=== PATIENT | female | born 1995 | race American Indian/Alaskan Native ===

== ENCOUNTER 2017-06-12 01:27 | Emergency (ER) | payer SELFPAY ==
[2017-06-12 02:26] VITALS: BP 128/78
[2017-06-12] MEDS ORDERED: TYLENOL PO ONE (02:28)
== END 2017-06-12 05:09 | disposition left against medical advice (07) ==
LOC: ED 01:27
DX: H57.11 Ocular pain, right eye (principal); Z53.21 Procedure and treatment not carried out due to patient leaving prior to being seen by health care provider

== ENCOUNTER 2017-09-11 18:19 | Emergency (ER) | payer SELFPAY ==
[2017-09-11 18:56] VITALS: BP 139/80
[2017-09-11 20:58] LABS: Bacteria,Urine 1+ /HPF (Negative); Bilirubin,Urine NEG (Negative); Blood,Urine LG (Negative); Color,Urine Yellow (Yellow); Mucus,Urine 3+ /HPF
--- NOTE | 2017-09-11 22:03 | Ultrasound Report ---
FINAL REPORT EXAM: US OB < = 14 WEEKS FETUS HISTORY: vag bleed with + TECHNIQUE: Transabdominal and transvaginal sonography of the pelvis. PRIORS: None. FINDINGS: There is a single, live intrauterine . Ultrasound estimated gestational age is 6 weeks 1 day. Ultrasound estimated date of confinement is 06 May 2018. heart motion is detected. The right ovary measures 3.3 x 1.5 x 1.6 cm and is grossly unremarkable. The left ovary measures 2.6 x 1.4 x 1.7 cm and is grossly unremarkable. Remainder of uterus and adnexa grossly unremarkable. IMPRESSION: 1. Single, live intrauterine .
--- NOTE | 2017-09-11 22:03 | Ultrasound Report ---
FINAL REPORT EXAM: US OB TRANSVAGINAL HISTORY: vag bleed with + TECHNIQUE: Transabdominal and transvaginal sonography of the pelvis. PRIORS: None. FINDINGS: There is a single, live intrauterine . Ultrasound estimated gestational age is 6 weeks 1 day. Ultrasound estimated date of confinement is 06 May 2018. heart motion is detected. The right ovary measures 3.3 x 1.5 x 1.6 cm and is grossly unremarkable. The left ovary measures 2.6 x 1.4 x 1.7 cm and is grossly unremarkable. Remainder of uterus and adnexa grossly unremarkable. IMPRESSION: 1. Single, live intrauterine .
--- NOTE | 2017-09-11 22:07 | Emergency Department Report ---
ED HPI - General Chief complaint: Vaginal Bleeding Stated complaint: /SPOTTING Time Seen by Provider: 09/11/17 22:04 Source: patient Mode of arrival: Ambulatory Limitations: No Limitations - History of Present Illness Initial comments: Ms Castillo is a 22 year-old woman who presents with positive test and some spotting. LMP July 29. In the last day has had small volume of spotting, was initially brown, then turned dark red. Went through one pad only. No cramping. no pain. no pain with urination. No back pain. Poor appetite. No nausea/vomiting. No shortness of breath. is taking PNVs. Does not have and OB. just found out she was with home test on Tuesday. No other complaints. MD Complaint: vaginal bleeding - Related Data Previous Rx's Medication Instructions Recorded Last Taken Type Nitrofurantoin Monohyd/M-Cryst 100 mg PO BID #10 capsule 09/11/17 Unknown Rx [Macrobid 100 mg Capsule] Allergies Allergy/AdvReac Type Severity Reaction Status Date / Time No Known Allergies Allergy Verified 06/12/17 05:33 ED Review of Systems ROS: Stated complaint: /SPOTTING Other details as noted in HPI Comment: All other systems reviewed and negative ED Past Medical Hx - Past Medical History Previous Medical History?: No - Surgical History Additional Surgical History: D&C - Social History Smoking Status: Never Smoker Substance Use Type: None - Medications Home Medications: Home Medications Medication Instructions Recorded Confirmed Last Taken Type Nitrofurantoin Monohyd/M-Cryst 100 mg PO BID #10 capsule 09/11/17 Unknown Rx [Macrobid 100 mg Capsule] ED Physical Exam - General Limitations: No Limitations General appearance: alert, in no apparent distress - Head Head exam: Present: atraumatic, normocephalic - Eye Eye exam: Present: normal appearance, EOMI - ENT ENT exam: Present: normal exam, mucous membranes moist - Neck Neck exam: Present: normal inspection. Absent: tenderness, meningismus - Respiratory Respiratory exam: Present: normal lung sounds bilaterally. Absent: respiratory distress, wheezes, rales - Cardiovascular Cardiovascular Exam: Present: regular rate, normal rhythm. Absent: systolic murmur, diastolic murmur, rubs, gallop - GI/Abdominal GI/Abdominal exam: Present: soft. Absent: distended, tenderness, guarding, rebound - Rectal Rectal exam: Present: deferred - Extremities Exam Extremities exam: Present: normal inspection. Absent: tenderness - Back Exam Back exam: Present: normal inspection. Absent: tenderness, CVA tenderness (R), CVA tenderness (L) - Neurological Exam Neurological exam: Present: alert, oriented X3 - Psychiatric Psychiatric exam: Present: normal affect, normal mood - Skin Skin exam: Present: warm, dry, intact, normal color. Absent: rash ED Course Vital Signs 09/11/17 18:52 Temperature 98.4 F Pulse Rate 85 Respiratory 18 Rate Blood Pressure 139/80 O2 Sat by Pulse 100 Oximetry ED Medical Decision Making - Lab Data Lab Results 09/11/17 09/11/17 09/11/17 Range/Units 20:02 20:02 20:30 HCG, Quant 2358 H (0-4) mIU/mL Urine Color Yellow (Yellow) Urine Turbidity Clear (Clear) Urine pH 6.0 (5.0-7.0) Ur Specific [place] 1.029 (1.003-1.030) Urine Protein 30 mg/dl (Negative) mg/dL Urine Glucose (UA) Neg (Negative) mg/dL Urine Ketones Neg (Negative) mg/dL Urine Blood Lg (Negative) Urine Nitrite Pos (Negative) Urine Bilirubin Neg (Negative) Urine Urobilinogen 4.0 (<2.0) mg/dL Ur Leukocyte Esterase Sm (Negative) Urine WBC (Auto) 29.0 H (0.0-6.0) /HPF Urine RBC (Auto) 11.0 (0.0-6.0) /HPF U Epithel Cells (Auto) 4.0 (0-13.0) /HPF Urine Bacteria (Auto) 1+ (Negative) /HPF Urine Mucus 3+ /HPF Blood Type O POSITIVE - Radiology Data EXAM: US OB TRANSVAGINAL HISTORY: vag bleed with + TECHNIQUE: Transabdominal and transvaginal sonography of the pelvis. PRIORS: None. FINDINGS: There is a single, live intrauterine . Ultrasound estimated gestational age is 6 weeks 1 day. Ultrasound estimated date of confinement is 06 May 2018. heart motion is detected. The right ovary measures 3.3 x 1.5 x 1.6 cm and is grossly unremarkable. The left ovary measures 2.6 x 1.4 x 1.7 cm and is grossly unremarkable. Remainder of uterus and adnexa grossly unremarkable. IMPRESSION: 1. Single, live intrauterine . - Medical Decision Making Ms castillo is a 22 year-old woman who presents with positive test and 1 day of vaginal spotting. No pain. No cramping. Triaged with labs and TVUs. TVUS shows healthy 6w1d fetus with + FCA. UA with evidence of UTI, will treat with macrobid 500mg BID. No vaginal d/c or other pelvic complaints. Will defer pelvic exam. 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 Taking PNVs. Low suspicion of ectopic, as we have normal US. Could be threatened AB vs implantation bleeding. Given care instructions, return precautions. DC to home. Critical care attestation.: If time is entered above; I have spent that time in minutes in the direct care of this critically ill patient, excluding procedure time. ED Disposition Clinical Impression: Vaginal bleeding affecting early UTI (urinary tract infection) Qualifiers: Urinary tract infection type: acute cystitis Hematuria presence: without hematuria Qualified Code(s): N30.00 - Acute cystitis without hematuria Disposition: DC-01 TO HOME OR SELFCARE Is pt being admited?: No Does the pt Need Aspirin: No Condition: Stable Instructions: (ED), Urinary Tract Infection in Women (ED) Prescriptions: Nitrofurantoin Monohyd/M-Cryst [Macrobid 100 mg Capsule] 100 mg PO BID #10 capsule Referrals: PRIMARY CAREMD [Primary Care Provider] - 3-5 Days LATASHA RICHTER MD [Staff Physician] - 3-5 Days
== END 2017-09-11 23:14 | disposition home or self-care (01) ==
LOC: ED 18:19
DX: O23.41 Unspecified infection of urinary tract in pregnancy, first trimester (principal); Z3A.01 Less than 8 weeks gestation of pregnancy
CPT/HCPCS: 36415; 76801; 76817; 81001; 84702; 86900; 86901; 99284

== ENCOUNTER 2017-09-13 01:46 | Emergency (ER) | payer SELFPAY ==
[2017-09-13 03:07] VITALS: BP 139/91
[2017-09-13 04:29] LABS: Basophils % (Auto) 0.4 % (0.0-1.8); Eosinophils # (Auto) 0.3 K/mm3 (0.0-0.4); Eosinophils % (Auto) 2.5 % (0.0-4.3); Hematocrit 35.6 % (30.3-42.9); Hemoglobin 11.2 gm/dl (10.1-14.3); Lymphocytes # (Auto) 1.6 K/mm3 (1.2-5.4); Mean Corpuscular HGB Conc 31 % (30-34); Monocytes # (Auto) 0.8 K/mm3 (0.0-0.8); Monocytes % (Auto) 7.1 % (0.0-7.3); Platelet Count 293 K/mm3 (140-440); Red Blood Count 5.64 M/mm3 (3.65-5.03); Red Cell Distribution Width 15.7 % (13.2-15.2)
[2017-09-13 04:38] LABS: Mean Corpuscular Hemoglobin 20 pg (28-32); Mean Corpuscular Volume 63 fl (79-97)
[2017-09-13 05:04] LABS: Bilirubin,Urine NEG (Negative); Blood,Urine LG (Negative); Color,Urine Red (Yellow); Urobilinogen,Urine < 2.0 mg/dL (<2.0)
[2017-09-13 05:05] LABS: RBC,Urine > 182.0 /HPF (0.0-6.0)
--- NOTE | 2017-09-13 06:32 | Emergency Department Report ---
ED Female HPI - General Chief complaint: Vaginal Bleeding Stated complaint: VAGINAL BLEEDING/6WKS Time Seen by Provider: 09/13/17 06:24 Source: patient Mode of arrival: Ambulatory Limitations: No Limitations - History of Present Illness Initial comments: 22-year-old 3 para 1 comes in at 6 weeks with vaginal bleeding. Patient reports that she has been bleeding since 09/08/2017. Patient reports that she was seen here in the emergency room on 09/11/2017 for vaginal bleeding. At that time she had hCG that was 2358 and had an ultrasound done at that time. Patient reports that she's had increasing vaginal bleeding and abdominal cramps tonight. Patient reports that she felt a gush of blood with a clear jelly like tissue she noted in the pad. 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 Patient denies any fever no chills no nausea no vomiting. MD Complaint: vaginal bleeding -: days(s) (5) Radiation: non-radiating Quality: cramping Consistency: intermittent Are you Now?: Yes Last Menstrual Period: 05/29/17 EDC: 03/05/18 Associated Symptoms: denies other symptoms - Related Data Sexually active: Yes (men unprotected) : 3 Para: 1 Previous Rx's Medication Instructions Recorded Last Taken Type Nitrofurantoin Monohyd/M-Cryst 100 mg PO BID #10 capsule 09/11/17 Unknown Rx [Macrobid 100 mg Capsule] Allergies Allergy/AdvReac Type Severity Reaction Status Date / Time No Known Allergies Allergy Verified 06/12/17 05:33 ED Review of Systems ROS: Stated complaint: VAGINAL BLEEDING/6WKS Other details as noted in HPI Comment: All other systems reviewed and negative Constitutional: denies: chills, fever Gastrointestinal: other (pelvic cramping) Genitourinary: other (vaginal bleeding) ED Past Medical Hx - Past Medical History Previous Medical History?: No - Surgical History Additional Surgical History: D&C - Social History Smoking Status: Never Smoker Substance Use Type: None - Medications Home Medications: Home Medications Medication Instructions Recorded Confirmed Last Taken Type Nitrofurantoin Monohyd/M-Cryst 100 mg PO BID #10 capsule 09/11/17 Unknown Rx [Macrobid 100 mg Capsule] ED Physical Exam - General Limitations: No Limitations General appearance: alert, in no apparent distress - Head Head exam: Present: atraumatic, normocephalic - Eye Eye exam: Present: EOMI - Respiratory Respiratory exam: Present: normal lung sounds bilaterally. Absent: respiratory distress - Cardiovascular Cardiovascular Exam: Present: regular rate, normal rhythm. Absent: systolic murmur, diastolic murmur, rubs, gallop - GI/Abdominal GI/Abdominal exam: Present: soft, normal bowel sounds - External exam: Present: bleeding Speculum exam: Present: vaginal bleeding, other (os is open). Absent: tissue Bi-manual exam: Absent: cervical motion tendernes, adnexal tenderness, adnexal mass, uterine tenderness - Extremities Exam Extremities exam: Present: full ROM - Back Exam Back exam: Present: full ROM - Neurological Exam Neurological exam: Present: alert, oriented X3 - Psychiatric Psychiatric exam: Present: normal affect, normal mood - Skin Skin exam: Present: warm, dry, intact, normal color. Absent: rash ED Course Vital Signs 09/13/17 03:01 Temperature 98.9 F Pulse Rate 85 Respiratory 18 Rate Blood Pressure 139/91 O2 Sat by Pulse 98 Oximetry ED Medical Decision Making - Lab Data Result diagrams: 09/13/17 03:43 - Medical Decision Making Patient's been evaluated by this provider fast track. Patient hCG today was 1836 on the 15th was 2358 which showed that she is declining. Ultrasound from single IUP Discussed with patient and she is most likely having a spontaneous miscarriage. Discussed patient she can take Tylenol for pain. And that she needs to follow up with OB in the next 3-7 days. Patient verbalizes understanding Critical care attestation.: If time is entered above; I have spent that time in minutes in the direct care of this critically ill patient, excluding procedure time. ED Disposition Clinical Impression: Spontaneous miscarriage Disposition: DC-01 TO HOME OR SELFCARE Is pt being admited?: No Does the pt Need Aspirin: No Condition: Stable Instructions: Spontaneous Miscarriage (ED) Additional Instructions: Please follow up with [facility] in the next 5-7 days. Referrals: PRIMARY CARE, [Primary Care Provider] - 3-5 Days [facility] [Provider Group] - 3-5 Days [facility], [facility] [Provider Group] - 3-5 Days [facility] [Provider Group] - 3-5 Days Forms: Work/School Release Form(ED)
== END 2017-09-13 06:30 | disposition home or self-care (01) ==
LOC: ED 01:46
DX: O03.9 Complete or unspecified spontaneous abortion without complication (principal); Z3A.01 Less than 8 weeks gestation of pregnancy
CPT/HCPCS: 36415; 81001; 84702; 85025; 86850; 86900; 86901; 99283